=== PATIENT | male | born 1965 ===

== ENCOUNTER → 2022-07-06 08:00 | Outpatient (CLI) | payer OTHER ==
[~2022-07-06] VITALS: Ht 180.3 cm; Wt 100.7 kg
[~2022-07-06 08:00] MED LIST: CANDESARTAN CILE8 MG PO; CIALIS5 MG PO
== END | disposition home or self-care (01) ==
LOC: ADM 07:00 → LAB 08:00 → EDSTATUS 07-11 07:00 → CIR.AMB 07-11 07:00
PROVIDERS: ATTEND Surgery
DX: N52.9 Male erectile dysfunction, unspecified (principal); N48.6 Induration penis plastica

== ENCOUNTER 2022-08-29 06:25 | Day surgery (SDC) | payer OTHER ==
[~2022-08-29] VITALS: Ht 180.3 cm; Wt 100.2 kg
[2022-08-29] MEDS ORDERED: PERCOCET 5-3251 EACH PO (13:40)
== END 2022-08-29 15:55 | disposition home or self-care (01) ==
LOC: CIR.AMB 06:25
PROVIDERS: ATTEND Surgery
DX: N52.01 Erectile dysfunction due to arterial insufficiency (principal); N48.6 Induration penis plastica; Z20.822 Contact with and (suspected) exposure to COVID-19; Z88.8 Allergy status to other drugs, medicaments and biological substances; I10 Essential (primary) hypertension; Z86.16 Personal history of COVID-19; J45.909 Unspecified asthma, uncomplicated
CPT/HCPCS: 54405; 54360; C1813